=== PATIENT | female | born 2000 | race Caucasian/White ===

== ENCOUNTER → 2023-09-06 08:17 | Outpatient (REF) | payer OTHER, SELFPAY | LOC: WDC 08:17 | PROVIDERS: ATTENDING PHYSICIAN Obstetrics & Gynecology | DX: N63.10 Unspecified lump in the right breast, unspecified quadrant (principal); N63.12 Unspecified lump in the right breast, upper inner quadrant | CPT/HCPCS: 76642 ==

== ENCOUNTER → 2025-04-08 10:16 | Outpatient (REF) | payer OTHER, SELFPAY | LOC: HWRAD 10:16 | PROVIDERS: ATTENDING PHYSICIAN Obstetrics & Gynecology; FAMILY PHYSICIAN Family Medicine | DX: O02.1 Missed abortion (principal) | CPT/HCPCS: 76801; 76817 ==

== ENCOUNTER 2025-04-10 06:18 | Day surgery (SDC) | payer OTHER, SELFPAY ==
[2025-04-10] VITALS (7 sets, daily range): BP systolic 12–119; BP diastolic 37–72; BMI 25.6
[2025-04-10 10:07] LABS: Hematocrit 39.0 % (37.0-47.0); Hemoglobin 13.9 g/dL (12.0-16.0)
[2025-04-10] MEDS: VIBRAMYCIN 200 MG PO (10:15)
[2025-04-10] MEDS: NORMOSOL-R/PLASMALYTE-A 1000 IV (10:15)
[2025-04-10] MEDS: ZOFRAN 4 MG IV (13:19)
[2025-04-10] MEDS: ROXICODONE 5 MG PO (13:21)
--- NOTE | 2025-04-10 13:46 | OR.RPT ---
Operative Report
Operative Report
Date of procedure: 04/10/2025
Preop diagnosis: retained products of conception
Postop diagnosis: same
Surgeon: Simi Gomes DO
Procedure: dilation and evacuation
Anesthesia: Bard, MAC
EBL: 10mL
Findings: Bimanual exam revealed normal sized anteverted uterus. Normal appearing cervix without lesions or masses. Retained products removed with suction curettage
Complications: none
Pathology: products of conception
Indication: Patient is a 24yo who presents for D&E for retained products. She had an US on 03/02 that showed fetus measuring 6.1wks with no FHR and then had f/u US that showed no change in , confirming missed . Patient took
Cytotec on 03/17 and thought she passed the . She has continued to have bleeding since that time. She had an US on 04/08 that showed EMS 14mm, concerning for retained products of conception. Patient was given option of taking more Cytotec vs
D&E and patient wishes to proceed with D&E. Risks, benefits and alternatives reviewed including bleeding, infection, damage to surrounding structures, uterine perforation, incomplete evacuation, and need for future operations. Patient's blood type
is A+ and does not require Rhogam.
Procedure:
Patient was taken to the operating room and placed under general anesthesia. She was placed in the dorsal lithotomy position with Paul type stirrups. She was given 200mg Doxycycline PO prior to the procedure for antibiotic prophylaxis. She was
prepped and draped in the normal sterile fashion. Patient voided immediately prior to the procedure, so her bladder was not drained. A bimanual exam was performed revealing a normal sized anteverted uterus. A Marsh retractor was placed in the
posterior aspect of the vagina and the anterior aspect of the vagina revealing good visualization of the cervix. The anterior lip of the cervix was grasped with an Allis clamp. The cervix was sequentially dilated to accommodate an 8mm curved rigid
suction curette. A 8mm curved rigid suction curette was introduced to the fundus. Vacuum was applied until it was in the green. A suction curettage was then performed with a rotational motion in all quadrants of the uterus. What appeared to be
retained products of conception were evacuated. Multiple passes were performed until all products of conception were removed. Care was taken not to introduce the suction curette with suction applied. The Allis clamp was removed from the anterior lip
of the cervix. Hemostasis was then noted. All instruments were removed from the vagina. All sponge and instrument counts were correct times 2. Patient was taken to PACU in stable condition.
== END 2025-04-10 13:58 | disposition home or self-care (01) ==
LOC: SDS 06:18
PROVIDERS: ATTENDING PHYSICIAN Student in an Organized Health Care Education/Training Program
DX: O02.1 Missed abortion (principal)
CPT/HCPCS: 59820; 85014; 85018; 86850; 86900; 86901; 88305